=== PATIENT | male | born 1975 | race Caucasian/White ===

== ENCOUNTER 2023-07-12 16:30 | Emergency (ER) | payer OTHER, SELFPAY ==
[2023-07-12 16:34] VITALS: BP 162/108; BMI 25.7
--- NOTE | 2023-07-12 16:41 | ED.GENMED ---
History of Present Illness
General
Chief Complaint: Abdominal Pain
Time Seen by Provider: 07/12/23 16:40
Travel History
Have you had any contact with someone who has COVID-19?: No
Do you have any symptoms of coronavirus? Fever > 100 degrees, chills, cough, shortness of breath, sore throat, loss of taste or smell, muscle aches, or headache?: No
History of Present Illness
History of Present Illness:
HPI: Patient presents due to right lower quadrant pain without any nausea, vomiting, or diarrhea. This started 3 days ago. Worsening over the past several days. He says he was moving heavy boxes before this occurred however over the past couple
days he noticed no significant improvement and actually worsening slightly. He has been having normal bowel movements. He does not think that the symptoms worsen with doing a sit up motion.
EXAM:
GENERAL: Well appearing in no distress
HEENT: Moist oral mucosa
CARDIOVASCULAR: No murmurs, normal heart rate, regular rhythm, No chest wall tenderness
PULMONARY: No respiratory distress, breath sounds are clear and equal
ABDOMEN: Soft with no peritoneal signs, moderate tenderness in the right lower quadrant tenderness
NEUROLOGIC: Excellent strength all extremities, no coordination deficits
PSYCHIATRIC: Appropriate mental status, normal insight and judgement
EXTREMITIES: Nontender, no edema, moves all extremities equally
SKIN: No rash, no lesions
TIME OF INITIAL ENCOUNTER: 4:50 PM
NUMBER AND COMPLEXITY OF PROBLEMS ADDRESSED AT THE ENCOUNTER
� Chronic conditions affecting care: Asthma, eosinophilic esophagitis
� Acute Exacerbation and/or Progression of Chronic Illness: This is an acute problem
� Differential Diagnosis includes: Acute appendicitis, ureteral stone, UTI/pyelonephritis unlikely, oblique muscle wall strain
AMOUNT AND/OR COMPLEXITY OF DATA TO BE REVIEWED AND ANALYZED
� I performed an independent evaluation of and my interpretation is:
EKG:
CT: I personally viewed CT imaging. I see no evidence for appendicitis.
X-rays:
Laboratory Studies: White blood cell count normal, chemistries unremarkable
Other:
� Review of other/old records: The patient had endoscopy in 2019
� Clinical information was obtained by an independent historian: Spoke to the at bedside
� Prescriptions/Medications Considered but not given:
� Further testing considered but not performed:
RISK OF COMPLICATIONS AND/OR MORBIDITY OR MORTALITY OF PATIENT MANAGEMENT
� Social determinants of health affecting care: Lives at home
� Discussion with other providers:
� Escalation of care including admission/observation vs risk of discharge considered: The patient has moderate tenderness in the right lower quadrant but has no loss of appetite. Will obtain CT imaging for further evaluation.
The patient appears very comfortable on reassessment at 7 PM
Past History
Past History
ED Past Medical History: Asthma; Negative HTN or Hypercholesterolemia
ED Past Surgical History: Negative Cardiac
Social History
Tobacco: Non-smoker
Alcohol: None
Drug: None
Personal:
Living: with family
Employment: Employed
Family History
Family History: Hypertension
Phy Exam
Physical Exam
Physical Exam:
See HPI
Course
Orders/Labs/Results
Orders:
Orders
07/12/23 17:00
CT Abd/pelvis W Iv Cont Urgent
Comment:
Reason For Exam: RLQ pain tender
07/12/23 17:01
0.9% Sodium Chloride 1000 ml [Nss] 1,000 ml IV BOLUS
07/12/23 17:11
Complete Blood Count/No Diff Urgent
Comprehensive Metabolic Panel Urgent
Lipase Urgent
Abnormal Lab Results
07/12/23
17:11
Sodium 133 L mmol/L
(135-145)
Glucose 100 H mg/dl
(70-99)
07/12/23 17:11
07/12/23 17:11
Vital Signs
Initial and Last Documented VS:
Initial Vital Signs
Temp Pulse Resp BP Pulse Ox
98.3 F 91 16 162/108 98
07/12/23 16:34 07/12/23 16:34 07/12/23 16:34 07/12/23 16:34 07/12/23 16:34
Last Documented Vital Signs
Temp Pulse Resp BP Pulse Ox
98.3 F 91 16 162/108 98
07/12/23 16:34 07/12/23 16:34 07/12/23 16:34 07/12/23 16:34 07/12/23 16:34
*Critical Care Note
Total Time (30-74mins, 75-104mins- exclusive of procedures): Not Applicable
ED Attending Note
-
Portions of this chart may have been created with voice recognition software.� Occasional wrong word or��sound alike� substitutions may have occurred due to the inherent limitations of voice recognition software.
Discharge Plan
Departure
Patient Disposition: Home (Routine Discharge)
Date of Disposition: 07/12/23
Time of Disposition: 18:56
Patient with high blood pressure during this ER visit?: Yes
Discharge Problem:
Abdominal pain
Instructions: Abdominal Pain
Prescriptions:
No Action
Antonina
1 tab PO [id number] PRN (Reason: allergy)
Activity Restrictions/Additional Instructions:
The cause of your pain is unclear. Your white blood cell count is normal. The radiologist sees a normal appendix. Return here if worse.
Interventions
Interventions:
*Risk Screen - Suicide Last Done: 07/12/23 16:34
*Neglect/Abuse Screening Last Done: 07/12/23 16:34
*ED COVID-19 Vaccine History Last Done: 07/12/23 16:34
MP-Skgifh-Qiqfpgkudd Assessment Last Done: 07/12/23 17:04
Discharge Date and Time
Print Language: SYRIAC
[2023-07-12 17:04] VITALS: BMI 26.1
[2023-07-12] MEDS: NSS 1000 IV (17:11)
[2023-07-12 17:32] LABS: Hematocrit 43.9 % (39.0-52.0); Mean Corp Hgb Conc. 34.2 g/dL (33.0-37.0); Mean Corpuscular Hgb 29.1 pg (27.0-31.0); Mean Corpuscular Volume 85.2 fL (80.0-94.0); Mean Platelet Volume 10.3 fL (7.4-10.4); Platelet Count 221 10^3/uL (130-400); Red Blood Cell Count 5.15 10^6/uL (4.70-6.10); Red Cell Dist. Width 12.6 % (11.5-14.5); White Blood Cell Count 8.5 10^3/uL (4.8-10.8)
[2023-07-12 17:45] LABS: ALT (SGPT) 23 U/L (0-50); AST (SGOT) 28 U/L (17-59); Albumin 4.6 g/dl (3.5-5.0); Alkaline Phosphatase 65 U/L (38-126); Blood Urea Nitrogen 16 mg/dl (9-20); Calcium 9.2 mg/dl (8.4-10.2); Carbon Dioxide 24 mmol/L (22-30); Chloride 104 mmol/L (98-107); Estimated Creatinine Clearance 88 ml/min; Glucose 100 mg/dl (70-99); Lipase 186 U/L (23-300); Potassium 3.9 mmol/L (3.5-5.1); Sodium 133 mmol/L (135-145); Total Bilirubin 0.6 mg/dl (0.2-1.3); Total Protein 7.4 g/dl (6.3-8.2); eGFR > 60.00
[2023-07-12 19:13] VITALS: BP 133/84
== END 2023-07-12 19:19 | disposition home or self-care (01) ==
LOC: EMR 16:30
PROVIDERS: Emergency Medicine; EMERGENCY PHYSICIAN Emergency Medicine; FAMILY PHYSICIAN Family Medicine
DX: R10.31 Right lower quadrant pain (principal); J45.909 Unspecified asthma, uncomplicated; Z82.49 Family history of ischemic heart disease and other diseases of the circulatory system
CPT/HCPCS: 99284; 96360; 74177; 80053; 83690; 85027; Q9967

== ENCOUNTER → 2024-01-19 14:04 | Outpatient (REF) | payer OTHER, SELFPAY | LOC: HWRAD 14:04 | PROVIDERS: ATTENDING PHYSICIAN Nurse Practitioner Adult Health | DX: N26.1 Atrophy of kidney (terminal) (principal) | CPT/HCPCS: 76775 ==